=== PATIENT | male | born 1940 ===

== ENCOUNTER 2017-07-15 13:11 | Emergency (ER) | payer OTHER ==
[~2017-07-15] VITALS: Ht 157.5 cm; Wt 85.3 kg
[2017-07-15] MEDS ORDERED: [UNRECOGNIZED DRUG - REMARK] (13:36)
== END 2017-07-15 15:55 | disposition home or self-care (01) ==
LOC: ER 13:11
DX: S06.2X9A Diffuse traumatic brain injury with loss of consciousness of unspecified duration, initial encounter (principal); R55 Syncope and collapse; W18.09XA Striking against other object with subsequent fall, initial encounter; Y93.89 Activity, other specified; Y92.59 Other trade areas as the place of occurrence of the external cause; Y99.8 Other external cause status